=== PATIENT | male | born 1995 | race Native Hawaiian/Other Pacific Islander ===

== ENCOUNTER 2016-12-13 21:54 | Emergency (ER) | payer OTHER ==
[~2016-12-13] VITALS: Ht 170.2 cm; Wt 67.7 kg
[2016-12-14] MEDS ORDERED: BENA25CA4 PO (00:06)
[2016-12-14 00:14] VITALS: BP 118/68
[2016-12-14] MEDS ORDERED: diphenhydrAMINE 50 MG CAP PO ONE (00:15)
== END 2016-12-14 00:16 | disposition home or self-care (01) ==
LOC: M ED 21:54
DX: L50.0 Allergic urticaria (principal); F17.210 Nicotine dependence, cigarettes, uncomplicated